=== PATIENT | male | born 1955 ===

== ENCOUNTER 2023-03-25 06:34 | Day surgery (SDC) | payer BC ==
[~2023-03-25 06:34] MED LIST: Lactated Ringers 1,000 ML IV SCH
[2023-03-25] MEDS ORDERED: Propofol 200 MG/20 ML SDV ONE ×2 (07:45→08:17)
[2023-03-25] MEDS ORDERED: Lactated Ringers 1,000 ML IV SCH (08:45)
[2023-03-25 08:57] VITALS: BP 115/61; PULSE 49
== END 2023-03-25 09:12 | disposition home or self-care (01) ==
LOC: MW.SDS 06:34
PROVIDERS: ATTEND Surgery
DX: Z12.11 Encounter for screening for malignant neoplasm of colon (principal); D12.5 Benign neoplasm of sigmoid colon; K62.1 Rectal polyp; K57.30 Diverticulosis of large intestine without perforation or abscess without bleeding; C91.10 Chronic lymphocytic leukemia of B-cell type not having achieved remission; C04.9 Malignant neoplasm of floor of mouth, unspecified; I10 Essential (primary) hypertension; E11.9 Type 2 diabetes mellitus without complications; N40.0 Benign prostatic hyperplasia without lower urinary tract symptoms; E78.00 Pure hypercholesterolemia, unspecified; Z79.84 Long term (current) use of oral hypoglycemic drugs; Z79.899 Other long term (current) drug therapy; Z87.891 Personal history of nicotine dependence
CPT/HCPCS: 45380; 45385; J2704; J7120